=== PATIENT | female | born 1965 | race Caucasian/White ===

== ENCOUNTER 2019-10-24 11:34 | Emergency (ER) | payer OTHER ==
--- OUTSIDE RECORDS SUMMARY | 2019-10-24 11:37 | XMS REPORT ---
:1965 [facility] Address [address] [place] [address] [address]. [address] [place] [address] Care Team Providers Name Role Phone Unavailable Unavailable Unavailable Problems This patient has no known problems. Allergies, Adverse Reactions, Alerts This patient has no known allergies or adverse reactions. Medications This patient has no known medications.
[2019-10-24] MEDS ORDERED: FENTANYL CITR 100 MCG/2 ML ONE ×2 (12:52→16:13)
[2019-10-24] MEDS ORDERED: NA CHLORIDE 0.9% 500 ML ONE ×2 (12:52→16:22)
[2019-10-24 12:53] LABS: Absolute Lymphocytes (CBC) 1.1 K/uL (0.7-4.9); Basophils % 0.8 % (0-1.3); Hematocrit 41.7 % (36.0-45.0); Lymphocytes % 21.3 % (15.3-44.8); MPV 7.2 fL (7.6-11.3); RBC Red Blood Cell Count 4.45 M/uL (3.86-4.86)
[2019-10-24 13:10] LABS: Bilirubin Total 1.2 mg/dL (0.2-1.0); Protein, Total 7.4 g/dL (6.4-8.2)
[2019-10-24 13:13] LABS: Potassium 2.9 mmol/L (3.5-5.1)
[2019-10-24] MEDS ORDERED: POTASSIUM CL SA 10 MEQ TAB PO ONE (13:23)
--- NOTE | 2019-10-24 13:50 | RAD REPORT ---
EXAM DESCRIPTION: CTAbdomen Pelvis W Contrast - 10/24/2019 1:39 pm CLINICAL HISTORY: Abdominal pain. ABD PAIN COMPARISON: Small Bowel Series dated 10/19/2019 TECHNIQUE: Biphasic CT imaging of the abdomen and pelvis was performed with 100 ml non-ionic IV cont rast. All CT scans are performed using dose optimization technique as appropriate and may include automated exposure control or mA/KV adjustment according to patient size. FINDINGS: The lung bases are clear. Mild diffuse fatty liver is present. Cholelithiasis. The spleen, pancreas, adrenal glands and kidneys are within normal limits. Multiple dilated small bowel loops are present which are fluid-filled and dilated to a maximum of 6-7 cm. This is compatible with a moderate to significant mechanical small-bowel obstruction. A clear po int of transition is difficult to discern due to overlapping of bowel loops. No pneumoperitoneum. No intra-abdominal or pelvic abscess. No evidence of significant lymphadenopathy. No aggressive bone lesion. IMPRESSION: Moderately severe mechanical small bowel obstruction. No pneumoperitoneum.
--- NOTE | 2019-10-24 14:43 | EDPHYS ---
Physician Documentation [facility] Name: Gogo Horne Age: 54 yrs Sex: Female : 1965 Arrival Date: 10/24/2019 Time: 11:37 Bed 24 Private MD: Clarke Schumacher ED Physician Farrukh Estrada HPI: 10/24 13:30 This 54 yrs old Female presents to ER via Ambulatory with complaints of ps1 Abdominal Pain, Weakness. 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 She ps1 is presenting with abdominal pain localized to the mid abdomen without radiation. Course is intermittent and coming in waves. Pain is tolerable but exquisite when cramping. She is passing stool and gas. She was sent by Dr. Cedillo for concerns of dehydration and partial SBO. Patient states that she is dehydrated and has not been able to keep food down for a couple of days despite having bowel movements. She states the symptoms started after a barium test performed last week. . Historical: - Allergies: 11:49 PENICILLINS; jl7 11:49 Morphine; jl7 - Home Meds: 11:49 Dexilant oral oral [Active]; Ibrance oral oral [Active]; Faslodex intramuscular jl7 intramuscular [Active]; - PMHx: 11:49 lobular carcinoma; jl7 - PSHx: 11:49 Mastectomy; Oophorectomy; Ivy flap reconstruction; jl7 - Immunization history:: Adult Immunizations not up to date. - Coronavirus screen:: The patient has NOT traveled to [place], [place], or [place] in the past 14 days. Proceed with normal triage process as indicated. - Social history:: Smoking status: Patient denies any tobacco usage or history of. - Ebola Screening: : No symptoms or risks identified at this time. ROS: 13:30 Constitutional: Negative for fever, chills, and weight loss, Eyes: Negative for injury, ps1 pain, redness, and discharge, Cardiovascular: Negative for chest pain, palpitations, and edema, Respiratory: Negative for shortness of breath, cough, wheezing, and pleuritic chest pain, MS/Extremity: Negative for injury and deformity, Skin: Negative for injury, rash, and discoloration, Neuro: Negative for headache, weakness, numbness, tingling, and seizure. 13:30 Constitutional: Positive for fatigue. 13:30 Abdomen/GI: Positive for abdominal pain, nausea and vomiting, abdominal cramps. Exam: 13:30 Constitutional: This is a well developed, well nourished patient who is awake, alert, ps1 and in no acute distress. Head/Face: Normocephalic, atraumatic. Chest/axilla: Normal chest wall appearance and motion. Nontender with no deformity. No lesions are appreciated. Cardiovascular: Regular rate and rhythm. No gallops, murmurs, or rubs. Normal PMI, no JVD. No pulse deficits. Respiratory: Lungs have equal breath sounds bilaterally, clear to auscultation and percussion. No rales, rhonchi or wheezes noted. No increased work of breathing, no retractions or nasal flaring. Skin: Warm, dry with normal turgor. Normal color with no rashes, no lesions, and no evidence of cellulitis. MS/ Extremity: Pulses equal, no cyanosis. Neurovascular intact. Full, normal range of motion. Neuro: Awake and alert, GCS 15, oriented to person, place, time, and situation. Cranial nerves II-XII grossly intact. Sensory grossly intact. 13:30 Abdomen/GI: Inspection: abdomen appears normal, Bowel sounds: normal, Palpation: soft, nontender, no distension.. Vital Signs: 11:53 BP 122 / 90; Pulse 105; Resp 19 S; Temp 98.5(O); Pulse Ox 98% on R/A; Weight 69.4 kg jl7 (R); Height 5 ft. 8 in. (172.72 cm) (R); Pain 9/10; 13:24 BP 110 / 74; Pulse 86; Resp 18; Pulse Ox 100% on R/A; Pain 2/10; mg2 15:43 BP 116 / 66; Pulse 85; Resp 18; Pulse Ox 100% on R/A; mg2 16:58 BP 120 / 66; Pulse 78; Resp 17; Temp 98; Pulse Ox 100% on R/A; Pain 2/10; mg2 11:53 Body Mass Index 23.26 (69.40 kg, 172.72 cm) jl7 MDM: 12:27 Patient medically screened. ps1 14:33 Data reviewed: vital signs, nurses notes, lab test result(s), radiologic studies, and ps1 as a result, I will transfer patient to [facility] for further diagnostic testing and treatment. Spoke with Dr. Lemos regarding patient and surgery not comfortable with metastatic disease complicating possible procedure. GI not time motion analyst. Transfer for increased level of care. . Counseling: I had a detailed discussion with the patient and/or guardian regarding: the historical points, exam findings, and any diagnostic results supporting the discharge/admit diagnosis, the need to transfer to another facility, for higher level of care. 10/24 12:25 Order name: CBC with Diff [facility] 10/24 12:25 Order name: CMP [facility] 10/24 12:25 Order name: Lipase [facility] 10/24 12:55 Order name: CBC with Automated Diff; Complete Time: 13:13 EDMS 10/24 13:13 Order name: Comprehensive Metabolic Panel; Complete Time: 13:13 EDMS 10/24 13:14 Interpretation: Abnormal: K 2.9. ps1 10/24 13:13 Order name: Lipase; Complete Time: 13:13 EDMS 10/24 12:25 Order name: CT Abd/Pelvis - IV Contrast Only [facility] 10/24 12:25 Order name: NPO; Complete Time: 12:42 [facility] 10/24 14:12 Order name: CT; Complete Time: 14:17 EDMS Administered Medications: 12:55 Drug: fentaNYL (PF) 50 mcg Route: IVP; Site: left antecubital; mg2 15:42 Follow up: Response: No adverse reaction mg2 12:55 Drug: NS 0.9% 500 ml Route: IV; Rate: bolus; Site: left antecubital; mg2 15:42 Follow up: IV Status: Completed infusion; IV Intake: 500ml mg2 13:22 Drug: Potassium Chloride 40 mEq Route: PO; mg2 15:42 Follow up: Response: No adverse reaction mg2 16:25 Drug: Reglan 10 mg Route: IVP; Site: left antecubital; mg2 17:00 Follow up: Response: No adverse reaction mg2 16:29 Drug: fentaNYL (PF) 50 mcg Route: IVP; Site: left antecubital; mg2 17:00 Follow up: Response: No adverse reaction; Marked relief of symptoms mg2 Disposition: 10/24/19 14:43 Transfer ordered to [facility]. Diagnosis are Small bowel obstruction, Hypokalemia, Dehydration. - Reason for transfer: Higher level of care. - Accepting physician is Chucho Das (Surgery). - Condition is Stable. - Problem is new. - Symptoms are unchanged. Signatures: Dispatcher [employer] Michelle Sauceda RN RN jl7 Farrukh Estrada MD MD ps1 Ozzie Munguia RN RN mg2 Corrections: (The following items were deleted from the chart) 17:01 14:43 10/24/2019 14:43 Transfer ordered to [facility]. mg2 Diagnosis is Small bowel obstruction; Hypokalemia; Dehydration. Reason for transfer: Higher level of care. Accepting physician is Chucho Das (Surgery). Condition is Stable. Problem is new. Symptoms are unchanged. ps1
--- NOTE | 2019-10-24 14:43 | ER ---
Nurse's Notes [facility] Name: Gogo Horne Age: 54 yrs Sex: Female : 1965 Arrival Date: 10/24/2019 Time: 11:37 Bed 24 Private MD: Clarke Schumacher Diagnosis: Small bowel obstruction;Hypokalemia;Dehydration Presentation: 10/24 11:40 Presenting complaint: Patient states: "I have a small bowel blockage and I have lobular jl7 carcinoma with mets to small bowel." Pt reports abdominal pain, N/V/D, weakness started after the barium study done here on . Transition of care: patient was not received from another setting of care. Onset of symptoms was October 19, 2019. Risk Assessment: Do you want to hurt yourself or someone else? Patient reports no desire to harm self or others. Initial Sepsis Screen: Does the patient meet any 2 criteria? No. Patient's initial sepsis screen is negative. Does the patient have a suspected source of infection? No. Patient's initial sepsis screen is negative. Care prior to arrival: None. 11:40 Method Of Arrival: Ambulatory [facility] 11:40 Acuity: GUSTAVO 3 jl7 Historical: - Allergies: 11:49 PENICILLINS; jl7 11:49 Morphine; jl7 - Home Meds: 11:49 Dexilant oral oral [Active]; Ibrance oral oral [Active]; Faslodex intramuscular jl7 intramuscular [Active]; - PMHx: 11:49 lobular carcinoma; jl7 - PSHx: 11:49 Mastectomy; Oophorectomy; Ivy flap reconstruction; jl7 - Immunization history:: Adult Immunizations not up to date. - Coronavirus screen:: The patient has NOT traveled to [place], [place], or [place] in the past 14 days. Proceed with normal triage process as indicated. - Social history:: Smoking status: Patient denies any tobacco usage or history of. - Ebola Screening: : No symptoms or risks identified at this time. Screenin:56 Abuse screen: Denies threats or abuse. Denies injuries from another. Nutritional mg2 screening: No deficits noted. Tuberculosis screening: No symptoms or risk factors identified. Fall Risk Assessment: 12:15 General: Appears in no apparent distress. comfortable, Behavior is calm, cooperative. mg2 12:15 Pain: Complains of pain in abdomen Pain does not radiate. Pain currently is 5 out of 10 mg2 on a pain scale. Quality of pain is described as aching, Pain began gradually, Is intermittent. Neuro: Level of Consciousness is awake, alert, obeys commands, Oriented to person, place, time, situation. Cardiovascular: Capillary refill < 3 seconds Patient's skin is warm and dry. Respiratory: Airway is patent Respiratory effort is even, unlabored, Respiratory pattern is regular, symmetrical. GI: Bowel sounds present X 4 quads. Abd is soft. GI: Reports nausea, vomiting. : No signs and/or symptoms were reported regarding the genitourinary system. EENT: No signs and/or symptoms were reported regarding the EENT system. Derm: Skin is intact, is healthy with good turgor, Skin is pink, warm \\T\\ dry. normal. Musculoskeletal: Circulation, motion, and sensation intact. Capillary refill < 3 seconds. 15:57 Reassessment: Patient appears in no apparent distress at this time. Patient and/or mg2 family updated on plan of care and expected duration. Pain level reassessed. Patient is alert, oriented x 3, equal unlabored respirations, skin warm/dry/pink. 16:30 Reassessment: report given to Gloria Monson of [facility]. form signed by the mg2 patient. 16:58 Reassessment: report given to Millicent of [facility]. patient in good condition, IV intact. mg2 Patient states feeling better. Vital Signs: 11:53 BP 122 / 90; Pulse 105; Resp 19 S; Temp 98.5(O); Pulse Ox 98% on R/A; Weight 69.4 kg 7 (R); Height 5 ft. 8 in. (172.72 cm) (R); Pain 9/10; 13:24 BP 110 / 74; Pulse 86; Resp 18; Pulse Ox 100% on R/A; Pain 2/10; mg2 15:43 BP 116 / 66; Pulse 85; Resp 18; Pulse Ox 100% on R/A; mg2 16:58 BP 120 / 66; Pulse 78; Resp 17; Temp 98; Pulse Ox 100% on R/A; Pain 2/10; mg2 11:53 Body Mass Index 23.26 (69.40 kg, 172.72 cm) 7 ED Course: 11:37 Patient arrived in ED. mr 11:37 Clarke Schumacher MD is Private Physician. mr 11:43 Triage completed. jl7 11:49 Arm band placed on right wrist. jl7 11:51 Farrukh Estrada MD is Attending Physician. ps1 12:03 Ozzie Munguia, RN is Primary Nurse. mg2 12:55 No provider procedures requiring assistance completed. Inserted saline lock: 20 gauge mg2 in left antecubital area, using aseptic technique. Blood collected. 13:24 Patient has correct armband on for positive identification. Pulse ox on. NIBP on. Door mg2 closed. Warm blanket given. 16:59 Patient transferred, IV remains in place. mg2 Administered Medications: 12:55 Drug: fentaNYL (PF) 50 mcg Route: IVP; Site: left antecubital; mg2 15:42 Follow up: Response: No adverse reaction mg2 12:55 Drug: NS 0.9% 500 ml Route: IV; Rate: bolus; Site: left antecubital; mg2 15:42 Follow up: IV Status: Completed infusion; IV Intake: 500ml mg2 13:22 Drug: Potassium Chloride 40 mEq Route: PO; mg2 15:42 Follow up: Response: No adverse reaction mg2 16:25 Drug: Reglan 10 mg Route: IVP; Site: left antecubital; mg2 17:00 Follow up: Response: No adverse reaction mg2 16:29 Drug: fentaNYL (PF) 50 mcg Route: IVP; Site: left antecubital; mg2 17:00 Follow up: Response: No adverse reaction; Marked relief of symptoms mg2 Intake: 15:42 IV: 500ml; Total: 500ml. mg2 Outcome: 14:43 ER care complete, transfer ordered by . ps1 16:59 Transferred by ground EMS to [facility], Transfer form completed. mg2 16:59 Condition: stable 16:59 Instructed on the need for transfer, Demonstrated understanding of instructions. 17:01 Patient left the ED. mg2 Signatures: LeonTierneyalMichelle RN RN jl7 Farrukh Estrada MD MD ps1 Ozzie Munguia, EDIS RN mg2
[2019-10-24] MEDS ORDERED: NA CHLORIDE 0.9% 50 ML IV ONE (16:15)
[2019-10-24] MEDS ORDERED: METOCLOPRAMIDE 10 MG/2mL INJ ONE (16:15)
[2019-10-26 09:01] VITALS: O2SAT 100
[2019-10-26 09:04] VITALS: BP 120/66; TEMP 98
== END 2019-10-24 17:01 | disposition short-term general hospital (02) ==
LOC: ER 11:34
DX: K56.609 Unspecified intestinal obstruction, unspecified as to partial versus complete obstruction (principal); E86.0 Dehydration; E87.6 Hypokalemia; D05.00 Lobular carcinoma in situ of unspecified breast; Z88.0 Allergy status to penicillin; Z88.5 Allergy status to narcotic agent
CPT/HCPCS: 96361; 85025; 36415; 83690; 80053; 74177; 96375; 96374; 99285; Q9967; J2765; J3010 ×2; J7040 ×2

== ENCOUNTER 2019-11-15 21:20 | Emergency (ER) | payer OTHER ==
--- OUTSIDE RECORDS SUMMARY | 2019-11-15 21:22 | XMS REPORT ---
:1965 [facility] Address [address] [place] [address] [address]. [address] [place] [address] Care Team Providers Name Role Phone CLIFF CARTER Unavailable Unavailable Problems This patient has no known problems. Allergies, Adverse Reactions, Alerts This patient has no known allergies or adverse reactions. Medications This patient has no known medications. Results Test Description Test Time Test Comments Text Results Atomic Results Result Comments PHOSPHORUS 2019-10-26 05:52:00 Test Item Value Reference Range Comments PHOSPHORUS (BEAKER) (test told=601) 2.7 mg/dL 2.3-4.7 Drama Critic ID - [id number] 05:52:00 Test Item Value Reference Range Comments MAGNESIUM (BEAKER) (test sptj=771) 1.5 mg/dL 1.6-2.6 Drama Critic ID - LABASIC METABOLIC [id number] 05:52:00 Test Item Value Reference Range Comments SODIUM (BEAKER) (test 138 meq/L 136-145 wzul=420) POTASSIUM (BEAKER) (test 3.3 meq/L 3.5-5.1 wskj=674) CHLORIDE (BEAKER) (test 107 meq/L 98-107 anwr=618) CO2 (BEAKER) (test 26 meq/L 22-29 ultv=000) BLOOD UREA NITROGEN 13 mg/dL 7-21 (BEAKER) (test jalf=714) CREATININE (BEAKER) (test 0.61 mg/dL 0.57-1.25 mpxu=354) GLUCOSE RANDOM (BEAKER) 86 mg/dL 70-105 (test xgjv=608) CALCIUM (BEAKER) (test 8.2 mg/dL 8.4-10.2 sxeq=099) EGFR (BEAKER) (test 101 mL/min/1.73 sq m ESTIMATED GFR IS NOT bspw=2966) ACCURATE CREATININE CLEARANCE IN PREDICTING GLOMERULAR FILTRATION RATE. ESTIMATED GFR IS NOT APPLICABLE FOR DIALYSIS PATIENTS. Drama Critic ID - LACBC W/PLT COUNT & AUTO [id number] 05:33:00 Test Item Value Reference Range Comments WHITE BLOOD CELL COUNT (BEAKER) (test zaty=349) 3.5 K/ L 3.5-10.5 RED BLOOD CELL COUNT (BEAKER) (test lyyr=343) 3.33 M/ L 3.93-5.22 HEMOGLOBIN (BEAKER) (test kduu=508) 10.9 GM/DL 11.2-15.7 HEMATOCRIT (BEAKER) (test agli=115) 31.9 % 34.1-44.9 MEAN CORPUSCULAR VOLUME (BEAKER) (test cooy=028) 95.8 fL 79.4-94.8 MEAN CORPUSCULAR HEMOGLOBIN (BEAKER) (test 32.7 pg 25.6-32.2 rxlm=323) MEAN CORPUSCULAR HEMOGLOBIN CONC (BEAKER) (test 34.2 GM/DL 32.2-35.5 ehod=378) RED CELL DISTRIBUTION WIDTH (BEAKER) (test 13.2 % 11.7-14.4 kksm=437) PLATELET COUNT (BEAKER) (test ewwy=080) 271 K/CU MM 150-450 MEAN PLATELET VOLUME (BEAKER) (test hwbg=811) 8.7 fL 9.4-12.3 NUCLEATED RED BLOOD CELLS (BEAKER) (test 0 /100 WBC 0-0 gdol=765) NEUTROPHILS RELATIVE PERCENT (BEAKER) (test 51 % zbnv=593) LYMPHOCYTES RELATIVE PERCENT (BEAKER) (test 40 % glnc=446) MONOCYTES RELATIVE PERCENT (BEAKER) (test 6 % ogmo=739) EOSINOPHILS RELATIVE PERCENT (BEAKER) (test 2 % eoea=027) BASOPHILS RELATIVE PERCENT (BEAKER) (test 1 % ngab=969) NEUTROPHILS ABSOLUTE COUNT (BEAKER) (test 1.76 K/ L 1.56-6.13 wglg=935) LYMPHOCYTES ABSOLUTE COUNT (BEAKER) (test 1.37 K/ L 1.18-3.74 akfd=896) MONOCYTES ABSOLUTE COUNT (BEAKER) (test 0.20 K/ L 0.24-0.36 hrxh=226) EOSINOPHILS ABSOLUTE COUNT (BEAKER) (test 0.07 K/ L 0.04-0.36 pcfx=538) BASOPHILS ABSOLUTE COUNT (BEAKER) (test 0.04 K/ L 0.01-0.08 egba=238) IMMATURE GRANULOCYTES-RELATIVE PERCENT (BEAKER) 0 % 0-1 (test yhhg=5640) [id number] 11:57:00 Test Item Value Reference Range Comments POTASSIUM (BEAKER) (test kjjk=361) 3.7 meq/L 3.5-5.1 Drama Critic ID - FAUSTINO [id number] 07:17:00 Test Item Value Reference Range Comments MAGNESIUM (BEAKER) (test 1.8 mg/dL 1.6-2.6 Specimen moderately hemolyzed alax=731) Drama Critic ID - [id number] 07:17:00 Test Item Value Reference Range Comments PHOSPHORUS (BEAKER) (test 3.6 mg/dL 2.3-4.7 Specimen moderately hemolyzed naoo=547) Drama Critic ID - MIGUEL ANGELBASIC METABOLIC [id number] 07:17:00 Test Item Value Reference Range Comments SODIUM (BEAKER) (test 138 meq/L 136-145 qvct=026) POTASSIUM (BEAKER) (test 3.8 meq/L 3.5-5.1 Specimen moderately sczx=223) hemolyzed CHLORIDE (BEAKER) (test 106 meq/L 98-107 gsme=646) CO2 (BEAKER) (test 23 meq/L 22-29 keck=733) BLOOD UREA NITROGEN 17 mg/dL 7-21 (BEAKER) (test rpgu=324) CREATININE (BEAKER) (test 0.75 mg/dL 0.57-1.25 Specimen moderately sazr=120) hemolyzed GLUCOSE RANDOM (BEAKER) 115 mg/dL 70-105 (test etpn=929) CALCIUM (BEAKER) (test 8.9 mg/dL 8.4-10.2 ihwe=985) EGFR (BEAKER) (test 80 mL/min/1.73 sq m ESTIMATED GFR IS NOT drsa=0102) ACCURATE CREATININE CLEARANCE IN PREDICTING GLOMERULAR FILTRATION RATE. ESTIMATED GFR IS NOT APPLICABLE FOR DIALYSIS PATIENTS. Drama Critic ID - MIGUEL ANGELCBC W/PLT COUNT & AUTO [id number] 06:29:00 Test Item Value Reference Range Comments WHITE BLOOD CELL COUNT (BEAKER) (test vcjj=522) 4.6 K/ L 3.5-10.5 RED BLOOD CELL COUNT (BEAKER) (test isov=761) 3.97 M/ L 3.93-5.22 HEMOGLOBIN (BEAKER) (test pmew=663) 12.8 GM/DL 11.2-15.7 HEMATOCRIT (BEAKER) (test vqmi=587) 37.1 % 34.1-44.9 MEAN CORPUSCULAR VOLUME (BEAKER) (test jitk=463) 93.5 fL 79.4-94.8 MEAN CORPUSCULAR HEMOGLOBIN (BEAKER) (test 32.2 pg 25.6-32.2 ltxg=908) MEAN CORPUSCULAR HEMOGLOBIN CONC (BEAKER) (test 34.5 GM/DL 32.2-35.5 stvr=417) RED CELL DISTRIBUTION WIDTH (BEAKER) (test 13.4 % 11.7-14.4 totv=734) PLATELET COUNT (BEAKER) (test aeym=886) 360 K/CU MM 150-450 MEAN PLATELET VOLUME (BEAKER) (test acwq=620) 8.7 fL 9.4-12.3 NUCLEATED RED BLOOD CELLS (BEAKER) (test 0 /100 WBC 0-0 gyra=165) NEUTROPHILS RELATIVE PERCENT (BEAKER) (test 56 % yndk=875) LYMPHOCYTES RELATIVE PERCENT (BEAKER) (test 36 % drxg=066) MONOCYTES RELATIVE PERCENT (BEAKER) (test 6 % iwav=101) EOSINOPHILS RELATIVE PERCENT (BEAKER) (test 1 % zfte=297) BASOPHILS RELATIVE PERCENT (BEAKER) (test 1 % nwwa=800) NEUTROPHILS ABSOLUTE COUNT (BEAKER) (test 2.54 K/ L 1.56-6.13 bfpn=204) LYMPHOCYTES ABSOLUTE COUNT (BEAKER) (test 1.66 K/ L 1.18-3.74 gibi=585) MONOCYTES ABSOLUTE COUNT (BEAKER) (test 0.27 K/ L 0.24-0.36 gaee=906) EOSINOPHILS ABSOLUTE COUNT (BEAKER) (test 0.06 K/ L 0.04-0.36 kqaa=700) BASOPHILS ABSOLUTE COUNT (BEAKER) (test 0.03 K/ L 0.01-0.08 eniz=371) IMMATURE GRANULOCYTES-RELATIVE PERCENT (BEAKER) 0 % 0-1 (test jumn=1887) [id number] 22:12:00 Test Item Value Reference Range Comments MAGNESIUM (BEAKER) (test zcwb=637) 1.8 mg/dL 1.6-2.6 Drama Critic ID - BSBASIC METABOLIC [id number] 22:12:00 Test Item Value Reference Range Comments SODIUM (BEAKER) (test 139 meq/L 136-145 ioqb=979) POTASSIUM (BEAKER) (test 2.8 meq/L 3.5-5.1 itrr=282) CHLORIDE (BEAKER) (test 105 meq/L 98-107 qzcl=696) CO2 (BEAKER) (test 23 meq/L 22-29 pbsp=576) BLOOD UREA NITROGEN 16 mg/dL 7-21 (BEAKER) (test xskk=355) CREATININE (BEAKER) (test 0.78 mg/dL 0.57-1.25 naxo=469) GLUCOSE RANDOM (BEAKER) 131 mg/dL 70-105 (test msun=954) CALCIUM (BEAKER) (test 9.4 mg/dL 8.4-10.2 wacf=225) EGFR (BEAKER) (test 76 mL/min/1.73 sq m ESTIMATED GFR IS NOT qjok=1307) ACCURATE CREATININE CLEARANCE IN PREDICTING GLOMERULAR FILTRATION RATE. ESTIMATED GFR IS NOT APPLICABLE FOR DIALYSIS PATIENTS. Drama Critic ID - BSHEPATIC FUNCTION [id number] 22:12:00 Test Item Value Reference Range Comments TOTAL PROTEIN (BEAKER) (test laov=139) 6.4 gm/dL 6.0-8.3 ALBUMIN (BEAKER) (test crwo=5889) 3.9 g/dL 3.5-5.0 BILIRUBIN TOTAL (BEAKER) (test pqcp=702) 1.0 mg/dL 0.2-1.2 BILIRUBIN DIRECT (BEAKER) (test djji=085) 0.5 mg/dL 0.1-0.5 ALKALINE PHOSPHATASE (BEAKER) (test xwtu=568) 78 U/L 40-150 AST (SGOT) (BEAKER) (test agrb=481) 17 U/L 5-34 ALT (SGPT) (BEAKER) (test xltr=106) 31 U/L 6-55 Drama Critic ID - BSCBC W/PLT COUNT & AUTO [id number] 21:55:00 Test Item Value Reference Range Comments WHITE BLOOD CELL COUNT (BEAKER) (test rvcf=965) 5.6 K/ L 3.5-10.5 RED BLOOD CELL COUNT (BEAKER) (test xzot=018) 4.17 M/ L 3.93-5.22 HEMOGLOBIN (BEAKER) (test shly=999) 13.6 GM/DL 11.2-15.7 HEMATOCRIT (BEAKER) (test jssr=168) 38.4 % 34.1-44.9 MEAN CORPUSCULAR VOLUME (BEAKER) (test znow=154) 92.1 fL 79.4-94.8 MEAN CORPUSCULAR HEMOGLOBIN (BEAKER) (test 32.6 pg 25.6-32.2 upkt=350) MEAN CORPUSCULAR HEMOGLOBIN CONC (BEAKER) (test 35.4 GM/DL 32.2-35.5 ilkx=638) RED CELL DISTRIBUTION WIDTH (BEAKER) (test 13.3 % 11.7-14.4 hwsh=298) PLATELET COUNT (BEAKER) (test kpgz=894) 402 K/CU MM 150-450 MEAN PLATELET VOLUME (BEAKER) (test zijq=240) 8.8 fL 9.4-12.3 NUCLEATED RED BLOOD CELLS (BEAKER) (test 0 /100 WBC 0-0 qkse=408) NEUTROPHILS RELATIVE PERCENT (BEAKER) (test 63 % tzfb=170) LYMPHOCYTES RELATIVE PERCENT (BEAKER) (test 29 % imqa=506) MONOCYTES RELATIVE PERCENT (BEAKER) (test 6 % iugj=893) EOSINOPHILS RELATIVE PERCENT (BEAKER) (test 0 % eimi=551) BASOPHILS RELATIVE PERCENT (BEAKER) (test 1 % vhab=006) NEUTROPHILS ABSOLUTE COUNT (BEAKER) (test 3.54 K/ L 1.56-6.13 ajls=006) LYMPHOCYTES ABSOLUTE COUNT (BEAKER) (test 1.62 K/ L 1.18-3.74 rrst=944) MONOCYTES ABSOLUTE COUNT (BEAKER) (test 0.31 K/ L 0.24-0.36 zeei=103) EOSINOPHILS ABSOLUTE COUNT (BEAKER) (test 0.02 K/ L 0.04-0.36 ivij=669) BASOPHILS ABSOLUTE COUNT (BEAKER) (test 0.04 K/ L 0.01-0.08 wgve=597) IMMATURE GRANULOCYTES-RELATIVE PERCENT (BEAKER) 1 % 0-1 (test ulng=5744) POCT-GLUCOSE [id number] 21:55:00 Test Item Value Reference Range Comments POC-GLUCOSE METER (BEAKER) 119 mg/dL 70-110 : TESTED AT [facility] [address] [facility] (test zcxg=2863) [facility], [address]: Drama Critic/Sign Language Translator [id number] for Mila Abdi
--- OUTSIDE RECORDS SUMMARY | 2019-11-15 21:23 | XMS REPORT | Summary of Care ---
:1965 Author Organization [facility] Address [address] [place] [id number] Care Team Providers Name Role Phone Clarke Schumacher MD Primary Care Provider Reason for Visit Reason Comments Follow-up Diabetes Mellitus II Encounter Details Date Type Department Care Team Description 10/30/2019 Office Visit [facility] Danitza Puentes, Type 2 diabetes mellitus without complication, without long-term current use of insulin ( Primary Dx); Endocrinology- MD Subclinical hypothyroidism; [address] Dyslipidemia; Professional Office [address] [address] [address] [place] [address] Allergies Active Allergy Reactions Severity Noted Date Comments Morphine Other - See comments 04/22/2015 States, "I do not remember, but bad reaction" Penicillins Rash 04/22/2015 documented as of this encounter (statuses as of 10/30/2019) Medications Medication Sig Dispensed Refills Start End Date Status Date letrozole (FEMARA) Take 2.5 mg by 0 Active 2.5 mg tablet mouth daily. MV,CA,MIN/IRON Take by mouth. 0 Active FUM/FA/VIT K (MULTI FOR HER ORAL) Ibuprofen-Diphenhyd Take by mouth. 0 Active ramine (ADVIL PM) 200-38 mg Tab blood sugar Use as directed, 100 Strip 1 Active diagnostic daily, Dx: E11.65 5 (ACCU-CHEK REKHA PLUS TEST STRP) strip Lancets (ACCU-CHEK Use as directed, 100 Each 1 Active SOFTCLIX LANCETS) daily, Dx: E11.65 5 Misc . ubidecarenone/vitam Take by mouth. 0 Active in E mixed (COQ10 SG 100 ORAL) C,E,zinc,copper Take by mouth. 0 Active 11/qjado7n/lut (OCUVITE ADULT 50 PLUS ORAL) ondansetron 4 mg Take 1 tablet by 20 tablet 0 Active tabletIndications: mouth every 8 9 Gastroenteritis (eight) hours as needed for Nausea and Vomiting (N/V). palbociclib Take by mouth. 0 Active (IBRANCE) 125 mg Cap fulvestrant by Intramuscular 0 Active (FASLODEX) 250 mg/5 route once every mL injection month. omega-3 fatty Take 1 g by mouth 0 10/30/19 Discontinued acids-vitamin E daily. 20 (FISH OIL) 1,000 mg capsule atorvastatin 40 mg TAKE ONE TABLET 90 tablet 1 10/30/19 Discontinued tabletIndications: BY MOUTH ONCE 9 20 Dyslipidemia DAILY AT BEDTIME thyroid (ARMOUR Take 1 tablet by 90 tablet 1 10/30/19 Discontinued THYROID) 60 mg mouth every 9 20 tabletIndications: morning. Acquired hypothyroidism metformin ER 500 mg Take 4 tablets by 360 tablet 1 10/30/19 Discontinued 24 hr mouth daily with 9 20 tabletIndications: breakfast. 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 Pulse 80 10/30/2019 10:13 AM CHIEF SUPPLY CHAIN OFFICER Temperature - - Respiratory Rate 16 10/30/2019 10:13 AM CHIEF SUPPLY CHAIN OFFICER Oxygen Saturation - - Inhaled Oxygen Concentration - - Weight 71.8 kg (158 lb 6.4 oz) 10/30/2019 10:13 AM CHIEF SUPPLY CHAIN OFFICER Height 172.7 cm (5' 8") 10/30/2019 10:13 AM CHIEF SUPPLY CHAIN OFFICER Body Mass Index 24.08 10/30/2019 10:13 AM CHIEF SUPPLY CHAIN OFFICER documented in this encounter Progress Notes Danitza Puentes MD - 10/30/2019 10:00 AM CST chief complaint: Type 2 diabetes mellitus, dyslipidemia, hypothyroidism-follow up HPI: Gogo Horne is a 54 year old /White female who is here today for Diabetes Mellitus Type 2, dyslipidemia and thyroid function abnormality. She is here by herself. [facility] 12/2018. Lost about 70 lbs since [facility]. She had recurrence of breast cancer which is now metastatic to stomach.H/o breast cancer s/p mastectomy with reconstruction, radiation and chemotherapy in 2011. She is now on chemotherapy. faslodex once monthly. ibrance once 3 weeks. Not on immunotherapy. Type 2 diabetes mellitus: A1C: 7.4 to 6.6, today it is 5.5% She was metformin 2000 mg daily in 12/2018. She stooped her metformin due to bowel issues. She is noton metformin since 01/2019. Glucose monitoring: None. Refuses to check glucose and refuses to use CGM Current medications: stopped metfromin in 01/2019 Diet: has ongoing dietary issues due to small bowel mets. She is soft foods. Exercise: active DIABETIC HEALTH MAINTENANCE Last Ophthalmology visit was 11/2018. No retinopathy, + cataract. Due now Patient on VALERIE/ARB therapy - No Patient on ASA therapy - No. Patient on Statin/Fibrate therapy - stooped statin and fish oil in 01/2019 Patient instructed about daily feet exams, last sensation exam was today 2019 Patient has received Nutrition/Diet/Diabetes Education on 01/29/2016. Dyslipidemia: stopped lipitor and fish oil in 01/2019. Last LDL was 53 in 2018 off meds. Elevated TSH: TPO negative s/p radition to neck ( exposed) for breast cancer in 2011 TSH 4-5 range in 07/2015 and 10/2015. 04/2016: TSH > 6. Was started on LT4 at 25 mcg but developed hand pains and stopped with resolution of pain. Patient was then switched to Mobile 90 mg in . 03/2018: Patient stated she does not believe that was side effect of LT4 and rather was likely from letrozole as she still has numbness in hands while taking letrozole. Started on lT4 at 25 mcg again in 03/2018 however patient requested to be switched to Mobile again in05/2018. Today 10/30/2019: she stopped all her thyroid meds in 12/2018 at her [facility] with us. Last TSH was normal in 07/2019 Vitamin D deficiency: Managed by [facility] HISTORY Reviewed past medical, surgical, social, family history and no changes REVIEW OF SYSTEMS Constitutional: + weight loss- 70 Lb in a year due to metastatic cancer Eyes: denies blurry vision. Mouth/Throat: denies dysphagia and denies hoarseness. Cardiovascular: denies chest pain . Respiratory: denies shortness of breath. Gastrointestinal: has ongoing issues on food intolerance and obstructions due to mets/scar tissue Musculoskeletal: denies muscle cramps. Neuro: denies myalgias, denies neuritis and + intermittent numbness . Endocrine:+ intolerance to cold PHYSICAL EXAM BP 103/73 (BP Location: Left arm, Patient Position: Sitting, BP CUFF SIZE: Adult Large) | Pulse 80| Resp 16 | Ht 5' 8" (1.727 m) | Wt 158 lb 6.4 oz ( 71.8 kg) | BMI 24.08 kg/m General: alert, oriented times three, no apparent distress, appearing age appropriate. Skin: skin color and turgor are normal Neck: + acanthosis nigricans. negative findings: carotids without bruits Thyroid:Bosselated and no thyroid bruit Lungs: no wheezes or crackles. Heart: regular rate and rhythm. Neuro: no tremors Ext: No edema. Sensory exam of the foot is normal. Monofilament exam with sensation Right: 5/5 , Left: 5/5. Lesionsand ulcers absent. Peripheral pulses present 2+. Component Latest Ref Rng & Units 12/28/2018 06/29/2018 06/22/2018 06/22/2018 12:00 AM 1:50 PM 8:01 AM 8:01 AM CHOL 120 - 200 mg/dL 172 HDL CHOL >50 mg/dL 27 (L) HDLC RATIO <=4.5 6.4 (H) TRIG 30 - 170 mg/dL 299 (H) LDL CHOL <=160 mg/dL 85 VLDL 5 - 60 mg/dL 60 TSH 0.45 - 4.70 mIU/L 5.66 (H) POCT HBA1C 4 - 6 % 6.6 (A) 7.4 (A) Component Latest Ref Rng & Units 07/17/2019 9:06 AM NA 135 - 145 mmol/L 141 K 3.5 - 5.0 mmol/L 3.4 (L) CL 98 - 108 mmol/L 102 CO2 TOTAL 23 - 31 mmol/L 30 AGAP 2 - 16 9 BUN 7 - 23 mg/dL 8 GLUCOSE 70 - 110 mg/dL 119 (H) CREATININE 0.50 - 1.04 mg/dL 0.61 TOTAL BILI 0.1 - 1.1 mg/dL 0.6 CALCIUM 8.6 - 10.6 mg/dL 9.6 T PROTEIN 6.3 - 8.2 g/dL 6.6 ALBUMIN 3.5 - 5.0 g/dL 4.2 ALK PHOS 34 - 122 U/L 80 ALTv 5 - 35 U/L 18 AST(SGOT) 13 - 40 U/L 24 eGFR CALCULATION (non ) mL/min/1.73m2 101.8 eGFR CALCULATION () mL/min/1.73m2 123.4 Component Latest Ref Rng & Units 07/17/2019 07/17/2019 9:06 AM 9:06 AM CHOL 120 - 200 mg/dL 96 (L) HDL CHOL >50 mg/dL 30 (L) HDLC RATIO <=4.5 3.2 TRIG 30 - 170 mg/dL 66 LDL CHOL <=160 mg/dL 53 VLDL 5 - 60 mg/dL 13 TSH 0.45 - 4.70 mIU/L 3.15 FREE T4 0.78 - 2.20 ng/dL 1.10 HGB A1C 4.0 - 6.0 % NGSP 6.4 (H) POCT HBA1C (%) Date Value 10/30/2019 5.5 12/28/2018 6.6 (A) HGB A1C (% NGSP) Date Value 07/17/2019 6.4 (H) ASSESSMENT AND PLAN: ICD-10-CM ICD-9-CM 1. Type 2 diabetes mellitus without complication, without long-term current use of insulin E11.9 250.00 2. Subclinical hypothyroidism E03.9 244.8 3. Dyslipidemia E78.5 272.4 4. Fatty liver K76.0 571.8 Type 2 diabetes mellitus without complication, without long-term current use of insulin (primary encounter diagnosis) Comment: A1C is 5.5%, likely from weight loss and poor oral intake. Will hold off on meds at this time. Plan: - hold off on metformin - diet control, Therapeutic lifestyle changes - annual labs UTD, consider UMAB at next visit Dyslipidemia Comment: not on meds. Last LDL was 53. Plan: - Therapeutic lifestyle changes - consider lipid panel in 6 months at next visit Subclinical hypothyroidism Comment: Off Mobile 60 mg since 10/2018 Compliance. Will check TFTs to assess her status. Appears euthyroid clinically. Plan: - hold off on LT4 replacement - check TFTs consider medication if needed Fatty liver Comment: per patient improved after weight loss Plan: Maintain weight. Orders Placed This Encounter Procedures POCT HEMOGLOBIN A1C TEST Danitza Puentes MD Orchestra Director Endocrinology, Diabetes and Metabolism documented in this encounter Plan of Treatment Date Type Specialty Care Team Description 04/29/2020 Office Visit Endocrinology Diabetes & Danitza Puentes MD Metabolism [address] [place], [place] [id number] Health Maintenance Due Date Last Done Comments HEPATITIS C (HCV) SCREEN 1965 PNEUMOCOCCAL 0-64 YEARS COMBINED 1969 SERIES (1 of 1 - PPSV23) EYE EXAM 1973 DTaP,Tdap,and Td Vaccines (1 - 1974 Tdap) PAP SMEAR 1984 Breast Cancer Screening 2003 (MAMMOGRAM) COLONOSCOPY 2013 Zoster Recombinant Vaccine 2013 (SHINGRIX) (1 of 2) INFLUENZA VACCINE (#1) 2019 FOOT EXAM 12/29/2019 12/28/2018, 12/28/2018, 06/29/2018, Additional history exists URINE MICROALBUMIN 12/30/2019 12/29/2018, 05/06/2016, 07/24/2015 HgA1C 01/15/2020 07/17/2019, 12/28/2018, 06/29/2018, Additional history exists CREATININE (SERUM) 07/17/2020 07/17/2019, 12/29/2018, 05/06/2016, Additional history exists LDL-C 07/17/2020 07/17/2019, 12/29/2018, 06/22/2018, Additional history exists documented as of this encounter Procedures Procedure Name Priority Date/Time Associated Diagnosis Comments POCT HEMOGLOBIN A1C Routine 10/30/2019 Type 2 diabetes Results for this TEST mellitus without procedure are in the complication, without results section. long-term current use of insulin documented in this encounter Results POCT HEMOGLOBIN A1C TEST (10/30/2019) POCT HBA1C 5.5 4 - 6 % Specimen Blood - CAPILLARY documented in this encounter Visit Diagnoses Diagnosis Type 2 diabetes mellitus without complication, without long-term current use of insulin - Primary Subclinical hypothyroidism Other specified acquired hypothyroidism Dyslipidemia Other and unspecified hyperlipidemia Fatty liver Other chronic nonalcoholic liver disease documented in this encounter documented as of this encounter
--- OUTSIDE RECORDS SUMMARY | 2019-11-15 21:23 | XMS REPORT | Summary of Care ---
:1965 Author Organization [facility] Address [address] [place] [id number] Care Team Providers Name Role Phone Clarke Schumacher MD Primary Care Provider Reason for Visit Reason Comments Refill Request Encounter Details Date Type Department Care Team Description 11/08/2019 Refill [facility] Family Medicine Clarke Schumacher MD Refill Request - [address] [address] [place] [address] Allergies Active Allergy Reactions Severity Noted Date Comments Morphine Other - See comments 04/22/2015 States, "I do not remember, but bad reaction" Penicillins Rash 04/22/2015 documented as of this encounter (statuses as of 11/08/2019) Medications Medication Sig Dispensed Refills Start End Status Date Date letrozole (FEMARA) Take 2.5 mg by [...] ORAL) C,E,zinc,copper Take by mouth. 0 Active 11/oitrx7n/lut (OCUVITE ADULT 50 PLUS ORAL) palbociclib Take by mouth. 0 Active (IBRANCE) 125 mg Cap fulvestrant by Intramuscular 0 Active (FASLODEX) 250 mg/5 route once every mL injection month. ondansetron 4 mg Take 1 tablet by 20 tablet 0 Active tabletIndications: mouth every 8 0 Gastroenteritis (eight) hours as needed for Nausea and Vomiting (N/V). ondansetron 4 mg Take 1 tablet by 20 tablet 0 Discontinued tabletIndications: mouth every 8 9 020 (Reorder) Gastroenteritis (eight) hours as needed for Nausea and Vomiting (N/V). documented as of this encounter (statuses as of 11/08/2019) Active Problems Problem Noted Date Acquired hypothyroidism 08/12/2016 Dyslipidemia 08/12/2016 Metabolic syndrome X 10/30/2015 Abnormal thyroid function test 10/30/2015 Vitamin D deficiency 07/25/2015 Type 2 diabetes mellitus without complications 04/22/2015 Overview: ICD10 Diagnosis Term Medication Aid Utility documented as of this encounter (statuses as of 11/08/2019) Resolved Problems Problem Noted Date Resolved Date HLD (hyperlipidemia) 07/24/2015 08/12/2016 documented as of this encounter (statuses as of 11/08/2019) Social History Tobacco Use Types Packs/Day Years [...] of this encounter Last Filed Vital Signs Not on filedocumented in this encounter Plan of Treatment Date Type Specialty Care Team Description 04/29/2020 Office Visit Endocrinology Diabetes & Danitza Puentes MD Metabolism [address] [place] [address] Health Maintenance Due Date Last Done Comments HEPATITIS C (HCV) SCREEN 1965 PNEUMOCOCCAL 0-64 YEARS COMBINED 1969 SERIES (1 of 1 - PPSV23) EYE EXAM 1973 DTaP,Tdap,and Td Vaccines (1 - 1974 Tdap) PAP SMEAR 1984 Breast Cancer Screening 2003 (MAMMOGRAM) COLONOSCOPY 2013 Zoster Recombinant Vaccine 2013 (SHINGRIX) (1 of 2) INFLUENZA VACCINE (#1) 2019 URINE MICROALBUMIN 12/30/2019 12/29/2018, 05/06/2016, 07/24/2015 HgA1C 04/29/2020 10/30/2019, 07/17/2019, 12/28/2018, Additional history exists CREATININE (SERUM) 07/17/2020 07/17/2019, 12/29/2018, 05/06/2016, Additional history exists LDL-C 07/17/2020 07/17/2019, 12/29/2018, 06/22/2018, Additional history exists FOOT EXAM 10/30/2020 10/30/2019, 10/30/2019, 12/28/2018, Additional history exists documented as of this encounter Results Not on filedocumented in this encounter Visit Diagnoses Diagnosis Gastroenteritis Other and unspecified noninfectious gastroenteritis and colitis documented in this encounter Insurance Payer Benefit Plan / Group Subscriber ID Effective Dates Phone Address Type AETNA [employer] [facility] [id number] 2018-Present PPO documented as of this encounter
--- OUTSIDE RECORDS SUMMARY | 2019-11-15 21:23 | XMS REPORT | Summary of Care ---
:1965 Author Organization [facility] Address [address] [place] [address] Care Team Providers Name Role Phone Clarke Schumacher MD Primary Care Provider Reason for Visit Reason Comments Follow-up Diabetes Mellitus II Encounter Details Date Type Department Care Team Description 10/30/2019 Office Visit [facility] Danitza Puentes, Type 2 diabetes mellitus without complication, without long-term current use of insulin ( Primary Dx); Endocrinology- MD Subclinical hypothyroidism; [address] Dyslipidemia; Professional Office [address] [address] [address] [place] [address] Allergies Active Allergy Reactions Severity [...] ORAL) C,E,zinc,copper Take by mouth. 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 Pulse 80 10/30/2019 10:13 AM GAS CUTTING MACHINE OPERATOR Temperature - - Respiratory Rate 16 10/30/2019 10:13 AM GAS CUTTING MACHINE OPERATOR Oxygen Saturation - - Inhaled Oxygen Concentration - - Weight 71.8 kg (158 lb 6.4 oz) 10/30/2019 10:13 AM GAS CUTTING MACHINE OPERATOR Height 172.7 cm (5' 8") 10/30/2019 10:13 AM GAS CUTTING MACHINE OPERATOR Body Mass Index 24.08 10/30/2019 10:13 AM GAS CUTTING MACHINE OPERATOR documented in this encounter Progress Notes Danitza Puentes MD - 10/30/2019 10:00 AM CST chief complaint: Type 2 diabetes mellitus, dyslipidemia, hypothyroidism-follow up HPI: Gogo Horne is a 54 year old /White female who is here today for Diabetes Mellitus Type 2, dyslipidemia and thyroid function abnormality. She is here by herself. [facility] 12/2018. Lost about 70 lbs since [facility]. She had recurrence of breast cancer which [...] of pain. Patient was then switched to [place] 90 mg in . 03/2018: Patient stated she does not believe that was side effect of LT4 and rather was likely from letrozole as she still has numbness in hands while taking letrozole. Started on lT4 at 25 mcg again in 03/2018 however patient requested to be switched to [place] again in05/2018. Today 10/30/2019: she stopped all her thyroid meds in 12/2018 at her [facility] with us. Last TSH was normal in 07/2019 Vitamin D deficiency: Managed by [facility] HISTORY Reviewed past medical, surgical, [...] at next visit Subclinical hypothyroidism Comment: Off Winslow 60 mg since 10/2018 Compliance. Will check TFTs to assess her status. Appears euthyroid clinically. Plan: - hold off on LT4 replacement - check TFTs consider medication if needed Fatty liver Comment: per patient improved after weight loss Plan: Maintain weight. Orders Placed This Encounter Procedures POCT HEMOGLOBIN A1C TEST Danitza Puentes MD Mountain [employer]ike Guide Endocrinology, Diabetes and Metabolism documented in this encounter Plan of Treatment Date Type Specialty Care Team Description 04/29/2020 Office Visit Endocrinology Diabetes & Danitza Puentes MD Metabolism [address] [place], [place] [address] Health Maintenance Due Date Last Done Comments [...]
--- OUTSIDE RECORDS SUMMARY | 2019-11-15 21:23 | XMS REPORT | Summary of Care ---
:1965 Author Organization [facility] [place] [address] Care Team Providers Name Role Phone Unavailable Primary Care Provider Unavailable Reason for Visit Reason Comments Breast Cancer Encounter Details Date Type Department Care Team Description 10/27/2019 [facility] Mike Call MD [facility] [address] 7th Floor, [address] [place] [address] 7th Floor, [address] [phone] [place] [phone] Allergies Active Allergy Reactions Severity Noted Date Comments Adhesive Tape 01/17/2013 Blisters and Rash. Opioid Analgesics 01/17/2013 Severe vomiting. Penicillins 12/09/2010 documented as of this encounter (statuses as of 10/31/2019) Medications Medication Sig Dispensed Refills Start Date End Date Status atorvastatin (LIPITOR) 10 Take 1 Tab by 30 Tab 6 09/11/2014 Active MG tabletIndications: mouth daily. Mixed hyperlipidemia metoclopramide (REGLAN) Take 1 Tab by 60 Tab 1 06/16/2019 Active 10 MG tablet mouth four times daily. Additional Information Patient taking differently: 10 mg ORAL PRN, Reason: Patient's preference, Reported on 10/27/2019 2:10 PM IBRANCE 125 MG CAPSIndications: TAKE ONE CAPSULE BY MOUTH 21 Cap 5 2019 Active Metastatic breast cancer DAILY WITH FOOD FOR 21 (HCCode), Metastatic DAYS OF A 28 DAY CYCLE. adenocarcinoma to stomach SWALLOW WHOLE. DO NOT (HCCode) TAKE IF CAPSULES ARE BROKEN OR CRACKED. AVOID GRAPEFRUIT PRODUCTS DEXILANT 60 MG CPDR TAKE 1 CAPSULE BY MOUTH 0 10/12/2019 Active ONCE DAILY ondansetron (ZOFRAN) 4 MG Take 4 mg by mouth. 0 02/01/2019 Active tablet documented as of this encounter (statuses as of 10/31/2019) Active Problems Problem Noted Date Metastatic breast cancer (HCCode) 03/09/2019 Mixed hyperlipidemia 09/11/2014 Diabetes type 2, uncontrolled (HCCode) 06/07/2014 Hypothyroidism 06/07/2014 Ovarian metastasis (HCCode) 04/20/2012 Cancer Staging: Clinical: Stage IV (M1, Free text: M1 (ovarian mets)) - Signed by Riri Crar MD, PhD on 04/20/2012 Pathologic: Stage IV (M1, Free text: T3 (multicentric, bilateral)N3M1 (ovarian mets)) - Signed by iRri Carr MD, PhD on 04/20/2012 [facility] 05/[facility]/2011 Overview: [facility] Tumor Board discussed this pt on 12/17/2010. Please see progress notes (Dr. Carr). [facility] Tumor Board discussed this pt on 06/03/2011. Please see progress notes (Dr. Carr). S/p bilateral mastectomies with R axillary node dissection (33/33 nodes positive, including level 3) and L sentinel node biopsy (micromets). S/p adjuvant chemo with TC x 6 completed 09/2011. documented as of this encounter (statuses as of 10/31/2019) Resolved Problems Problem Noted Date Resolved Date Neutropenia, unspecified (HCCode) 06/16/2011 03/01/2018 documented as of this encounter (statuses as of 10/31/2019) Social History Tobacco Use Types Packs/Day Years Used Date Never Smoker Smokeless Tobacco: Never Used Alcohol Use Drinks/Week oz/Week Comments No 1-2 Standard drinks or equivalent 1.0 - 2.0 special occassions. Sex Assigned at Date Recorded Not on file Job Start Date Occupation Industry Not on file Not on file Not on file Travel History Travel Start Travel End No recent travel history available. documented as of this encounter Last Filed Vital Signs Vital Sign Reading Time Taken Comments Blood Pressure 111/75 10/27/2019 1:50 PM [employer] Pulse 84 10/27/2019 1:50 PM [employer] Temperature 36.8 C (98.2 F) 10/27/2019 1:50 PM [employer] Respiratory Rate - - Oxygen Saturation - - Inhaled Oxygen Concentration - - Weight - - Height 172.7 cm (5' 8") 10/27/2019 1:50 PM [employer] Body Mass Index - - documented in this encounter Progress Notes Oneyda Mccullough MD - 10/27/2019 1:50 PM CST HPI: Feels well but she feels overwhelmed with having to come for such frequent visits on palbociclib. She is worried that that the treatment is not working well and also the inconvenient. * 12/01/10 MMG: Bilateral suspcious masses, both showed ILC, gr 1-2, ER 8/8, DE 7/8, HER2-, MIB 10%. Left breast biopsy was too small to perform biomarkers. Right axillary LN + for cancer. * CT: Innumerable bony mets, but bone scan was negative. Tumor board recommended neoadjuvant Tamoxifen. * 12/24/10 Started neoadjuvant Tamoxifen. * 04/24/11 bilateral mastectomies: Extensive bilateral ILC (2.1 cm in left, 7.5 cm in right breast),33/[address] 1 Left axillary SNB with micromets. * 06/03/11 Tumor Board recommendation was for adjuvant TC chemotherapy. * 06/19/11-10/02/11 TC x 6 cycles. * 12/2011 Pt completed adjuvant XRT with Dr. Willy Valdivia in [place], [place]. * 01/26/12 Started adjuvant Tamoxifen * 02/03/12 Tumor Board: Recommendation was for adjuvant endocrine therapy with bilateral oophorectomy and Tamoxifen. * 03/04/[address] ([facility]): diffuse sclerotic foci noted within virtually all imaged bones andhas the appearance of metastatic disease. * 03/10/12 BSO ([facility]): metastatic adenocarcinoma, c/w history of lobular carcinoma of breast. Tumor involves bilateral ovaries and fallopian tubes. ER 8/ 8, DE 8/8, HER2=0 (negative). * 04/2012: Started letrozole * 03/07/19 CT Abd/plevis: 1. Multiple dilated small bowel loops with small bowel fecal sign and collapse of the proximal and distal small bowel. Findings are compatible with high-grade small bowel obstruction. 2. Diffuse thickening of the gastric wall consistent with metastatic Disease. 3. Status post bilateral mastectomy, right axillary lymph node dissection and TRAM flap reconstruction. * 03/07/19 Bone scan: negative for bone mets. * 03/14/19: Faslodex and Palbociclib * 06/09/19 CT C/A/P: 1. 2 persistently dilated loops of distal small bowel/ileum are again noted, improved since the prior exam. There are focal areas of narrowing with increased mucosal enhancement these bowel loops from normal caliber loops, and these may represent metastases to bowel. Inflammatory bowel disease is a less likely consideration. The rest of the bowel shows normal caliber. 2. No other evidence of metastatic disease in the chest, abdomen and Pelvis. 09/01/19 CT C/A/P: 1. Persistent mild to moderately dilated loops of small bowel with unchanged focal segmental wall thickening, mucosal enhancement, and luminal narrowing. As before, differential considerations include an infectious/ inflammatory process and enteric metastases. 2. Otherwise, no specific evidence of recurrent malignancy or metastatic disease within the chest, abdomen , and pelvis. Interim history: Was recently admitted to [facility] for SBO - was told while admitted that there is a single narrow small bowel area that can be bypassed. She is following with GI surgeon and is wondering whether such a procedure is ok by her oncologist. Past Medical History: Diagnosis Date Metastatic breast cancer (HCCode) 03/09/2019 Neutropenia, unspecified (HCCode) 06/16/2011 Social History Socioeconomic History Marital status: Spouse name: Not on file Number of children: Not on file Years of education: Not on file Highest education level: Not on file Occupational History Not on file Social Needs Financial resource strain: Not on file Food insecurity: Worry: Not on file Inability: Not on file Transportation needs: Medical: Not on file Non-medical: Not on file Tobacco Use Smoking status: Never Smoker Smokeless tobacco: Never Used Substance and Sexual Activity Alcohol use: No Alcohol/week: 1.0 - 2.0 standard drinks Types: 1 - 2 drink(s) per week Comment: special occassions. Drug use: No Sexual activity: Not on file Lifestyle Physical activity: Days per week: Not on file Minutes per session: Not on file Stress: Not on file Relationships Social connections: Talks on phone: Not on file Gets together: Not on file Attends denominational service: Not on file Active member of club or organization: Not on file Attends meetings of clubs or organizations: Not on file Relationship status: Not on file Intimate partner violence: Fear of current or ex partner: Not on file Emotionally abused: Not on file Physically abused: Not on file Forced sexual activity: Not on file Other Topics Concerns: Not on file Social History Narrative Not on file No family history on file. Outpatient Medications Prior to Visit Medication Sig Dispense Refill atorvastatin Take 1 Tab by mouth daily. 30 Tab 6 DEXILANT TAKE 1 CAPSULE BY MOUTH ONCE DAILY IBRANCE TAKE ONE CAPSULE BY MOUTH DAILY WITH FOOD FOR 21 DAYS OF A 28 DAY CYCLE. SWALLOW WHOLE. DO NOT TAKE IF CAPSULES ARE BROKEN OR CRACKED. AVOID GRAPEFRUIT PRODUCTS 21 Cap 5 metoclopramide Take 1 Tab by mouth four times daily. (Patient taking differently: Take 10 mg by mouth as needed.) 60 Tab 1 ondansetron Take 4 mg by mouth. No facility-administered medications prior to visit. PHYSICAL EXAM: Vital Signs Height: 5' 8" (172.7 cm) Temp: 98.2 F (36.8 C) Temp Source: Oral Pulse: 84 BP: 111/75 Patient Position: Sitting BP Location: left arm Oxygen Therapy O2 Sat: 97 % O2 Flow Rate: Room Air Height and Weight Predicted Body Weight: 140.87 Weight gain of 14# since Aug 2017 appointment. Pain Assessment Pain Scale: 0 Breasts: s/p bilateral mastectomy with reconstruction, reconstructed breasts appear normal, there genaro firm mass in the upper medial area of the L breast, no skin or nipple changes or axillary nodes. ECO Well appearing, in no distress MMs moist RRR, no m/r/g Clear to auscultation bilaterally Abdomen benign without organomegally or masses, bowel sounds normal, no shifting dullness Ext: no c/c/e Skin: no rashes or lesions Neuro: normal gait, strength and sensation symmetric Psych: mood and affect appropriate Labs from today, Na 128 WBC within normal today Assessment and plan: Pt is a 53 yo woman with metastatic ILC with bowel mets and hx of SBO Continue with faslodex and ibrance I am in agreement with the procedure since patient has been reassured by the surgical team that the there is a single obstructive focus in the small bowel that may be due to presence of scars / adhesions. Per the stomach biopsy in 2018, there is metastatic breast cancer in the stomach lining. If shedoes proceed with the procedure, she needs to stop ibrance at least 7 days before the procedure. RTC in 5 weeks. Spend >45 minutes face to face with patient, where >50% was in counseling and discussing treatment options - the fact that the imaging shows stable to improved is reassuring. Oneyda Leal MD [facility] documented in this encounter Plan of Treatment Date Type Specialty Care Team Description 11/20/2019 Appointment General Surgery Chucho Das MD [address] [place] [address] 12/01/2019 Appointment Infusion Center 4, [facility] Chair [address], [address] [place] [address] Health Maintenance Due Date Last Done Comments COLON CANCER SCREENIN1963 COLONOSCOPY TETANUS SHOT (ADULT) 1978 ANNUAL DIABETIC FOOT EXAM 1981 ANNUAL DIABETIC RETINOPATHY 1981 SCREENING BMI FOLLOW UP PLAN 1981 HEPATITIS C SCREENING 1981 HIV SCREENING 1981 CERVICAL CANCER SCREENING 3 YEAR 1984 FOLLOW UP MAMMOGRAM ANNUAL 03/09/2012 03/09/2011, 12/11/2010, 12/09/2010, Additional history exists FLU VACCINE > 6 MONTHS 04/13/2019 documented as of this encounter Results Not on filedocumented in this encounter Visit Diagnoses Diagnosis Metastatic breast cancer (HCCode) - Primary documented in this encounter Insurance Payer Benefit Plan / Subscriber ID Effective Dates Phone Address Type Group [employer] OPEN ACCESS xxxxxxxxxx 2018-Present [id number] POS HMO/POS/EPO/PPO - [place], [place] [employer] [id number] documented as of this encounter
--- OUTSIDE RECORDS SUMMARY | 2019-11-15 21:23 | XMS REPORT | Summary of Care ---
:1965 Author Organization [facility] - Health Address [address] [place], [place] [id number] Care Team Providers Name Role Phone Clarke Schumacher MD Primary Care Provider Encounter Details Date Type Department Care Team Description 10/31/2019 Orders Only [facility] Doctor Unassigned, No [address] [facility] Name [place] [phone] Allergies Active Allergy Reactions Severity Noted Date Comments Morphine Other - See comments 04/22/2015 States, "I do not remember, but bad reaction" Penicillins Rash 04/22/2015 documented as of this encounter (statuses as of 10/31/2019) Medications Medication Sig Dispensed Refills Start Date End Date Status letrozole (FEMARA) Take 2.5 mg by 0 Active 2.5 mg tablet mouth daily. MV,CA,MIN/IRON Take by mouth. 0 Active FUM/FA/VIT K (MULTI FOR HER ORAL) Ibuprofen-Diphenhydra Take by mouth. 0 Active mine (ADVIL PM) 200-38 mg Tab blood sugar Use as directed, 100 Strip 1 07/24/2015 Active diagnostic (ACCU-CHEK daily, Dx: E11.65 REKHA PLUS TEST STRP) strip Lancets (ACCU-CHEK Use as directed, 100 Each 1 07/24/2015 Active SOFTCLIX LANCETS) daily, Dx: E11.65 . Misc ubidecarenone/vitamin Take by mouth. 0 Active E mixed (COQ10 SG 100 ORAL) C,E,zinc,copper Take by mouth. 0 Active 11/beqsv5t/lut (OCUVITE ADULT 50 PLUS ORAL) ondansetron 4 mg Take 1 tablet by 20 tablet 0 02/01/2019 Active tabletIndications: mouth every 8 Gastroenteritis (eight) hours as needed for Nausea and Vomiting (N/V). palbociclib (IBRANCE) Take by mouth. 0 Active 125 mg Cap fulvestrant by Intramuscular 0 Active (FASLODEX) 250 mg/5 route once every mL injection month. documented as of this encounter (statuses as of 10/31/2019) Active Problems Problem Noted Date Acquired hypothyroidism 08/12/2016 Dyslipidemia 08/12/2016 Metabolic syndrome X 10/30/2015 Abnormal thyroid function test 10/30/2015 Vitamin D deficiency 07/25/2015 Type 2 diabetes mellitus without complications 04/22/2015 Overview: ICD10 Diagnosis Term Full Stack Web Developer Utility documented as of this encounter (statuses [...] Diabetes & Danitza Puentes MD Metabolism [address] [place] [address] [phone] Health Maintenance Due Date Last Done Comments [...] Procedure Name Priority Date/Time Associated Diagnosis Comments EXTERNAL PROVIDER Routine 10/31/2019 12:01 AM [employer] RECORDS documented in this encounter Results Not on filedocumented in this encounter Insurance Payer Benefit Plan / Group Subscriber ID Effective Dates Phone Address Type AET[employer] [facility] [id number] 2018-Present PPO documented as of this encounter
[2019-11-15] MEDS ORDERED: ONDANSETRON 4 MG/2 ML VIAL ONE (22:00)
[2019-11-15] MEDS ORDERED: NA CHLORIDE 0.9% 1,000 ML ONE (22:01)
[2019-11-15] MEDS ORDERED: FAMOTIDINE 20 MG/2 ML VIAL IV ONE (22:01)
[2019-11-15 22:07] LABS: Absolute Lymphocytes (CBC) 1.3 K/uL (0.7-4.9); Basophils % 0.7 % (0-1.3); Hematocrit 40.5 % (36.0-45.0); Lymphocytes % 20.6 % (15.3-44.8); MPV 7.6 fL (7.6-11.3)
[2019-11-15] MEDS ORDERED: FENTANYL CITR 100 MCG/2 ML ONE (22:21)
[2019-11-15 22:26] LABS: ALT/SGPT 194 U/L (12-78); AST/SGOT 154 U/L (15-37); Albumin 3.3 g/dL (3.4-5.0); Alkaline Phosphatase 80 U/L (45-117); BUN Blood Urea Nitrogen 24 mg/dL (7-18); Bicarbonate 25 mmol/L (21-32); Bilirubin Direct 0.4 mg/dL (0-0.2); Bilirubin Total 1.2 mg/dL (0.2-1.0); Glucose Level 132 mg/dL (74-106); Lipase 143 U/L (73-393); Protein, Total 6.3 g/dL (6.4-8.2); Sodium Level 136 mmol/L (136-145)
[2019-11-15 22:27] LABS: Potassium 2.8 mmol/L (3.5-5.1)
[2019-11-15] MEDS ORDERED: NS KCL 20MEQ 1,000 ML IV ONE (22:49)
[2019-11-16] MEDS ORDERED: CIPROFLOXACIN 400mg IV 400 MG/200 ML BAG IV ONE (01:00)
[2019-11-16] MEDS ORDERED: METRONIDAZOLE 500mg IVPB 500 MG/100 ML BAG IV ONE (01:01)
--- NOTE | 2019-11-16 01:03 | ER ---
Nurse's Notes [facility] Name: Gogo Horne Age: 54 yrs Sex: Female : 1965 Arrival Date: 11/15/2019 Time: 21:22 Bed 7 Private MD: Diagnosis: Cholecystitis;Hypokalemia;Small Bowel Obstruction Presentation: 11/14 21:25 Chief complaint: Patient states: she was recently diagnosed with a SBO and was aa1 scheduled to have outpatient surgery this upcoming Wednesday in [place] but today she began having upper int abd pain and vomiting since earlier this afternoon. Coronavirus screen: The patient has NOT traveled to a country currently being monitored by the [facility] within the last 14 days. Proceed with normal triage procedures. Ebola Screen: Patient denies exposure to infectious person. Patient denies travel to an Ebola-affected area in the 21 days before illness onset. Initial Sepsis Screen: Does the patient meet any 2 criteria? HR > 90 bpm. Does the patient have a suspected source of infection? Yes: Acute abdominal pain. Risk Assessment: Do you want to hurt yourself or someone else?. 21:25 Method Of Arrival: Ambulatory aa1 21:25 Acuity: GUSTAVO 2 aa1 21:25 Onset of symptoms was November 15, 2019 at 17:30. Care prior to arrival: None. Activity aa1 prior to arrival: None. Mechanism of Injury: No Mechanism of Injury. Transition of care: patient was not received from another setting of care. Triage Assessment: 21:25 General: Appears in no apparent distress. uncomfortable, Behavior is calm, cooperative, aa1 appropriate for age. Historical: - Allergies: 21:47 Morphine; aa1 21:47 PENICILLINS; aa1 - Home Meds: 21:47 Dexilant Oral [Active]; Faslodex intramuscular [Active]; Ibrance Oral [Active]; aa1 - PMHx: 21:47 lobular carcinoma; aa1 - PSHx: 21:47 Mastectomy; Oophorectomy; Ivy flap reconstruction; aa1 - Immunization history:: Flu vaccine is not up to date. - Social history:: Smoking status: Patient denies any tobacco usage or history of. Screenin:32 Abuse screen: Denies threats or abuse. Denies injuries from another. Nutritional mg2 screening: No deficits noted. Tuberculosis screening: No symptoms or risk factors identified. Fall Risk IV access (20 points). Assessment: 22:15 General: Appears in no apparent distress. comfortable. General: Behavior is calm, mg2 cooperative. Pain: Complains of pain in abdomen. Neuro: Level of Consciousness is awake, alert, obeys commands, Oriented to person, place, time, situation. Cardiovascular: Capillary refill < 3 seconds Patient's skin is warm and dry. Respiratory: Airway is patent Respiratory effort is even, unlabored, Respiratory pattern is regular, symmetrical. GI: Reports lower abdominal pain, upper abdominal pain, vomiting, since 5 pm tonight. GI: Reports history of small bowel obstruction. : No signs and/or symptoms were reported regarding the genitourinary system. EENT: No signs and/or symptoms were reported regarding the EENT system. Derm: Skin is intact, is healthy with good turgor, Skin is pink, warm \T\ dry. normal. Musculoskeletal: Circulation, motion, and sensation intact. Capillary refill < 3 seconds. 22:52 Reassessment: Patient appears in no apparent distress at this time. Patient and/or mg2 family updated on plan of care and expected duration. Pain level reassessed. Patient is alert, oriented x 3, equal unlabored respirations, skin warm/dry/pink. Patient states feeling better. Patient states symptoms have improved. 03 00:28 Reassessment: Patient appears in no apparent distress at this time. Patient and/or mg2 family updated on plan of care and expected duration. Pain level reassessed. Patient is alert, oriented x 3, equal unlabored respirations, skin warm/dry/pink. 00:36 Reassessment: patient refused NGT insertion,. provider informed. mg2 02:20 Reassessment: report given to EMS. patient in good condition.. pain medicine given mg2 prior to transfer, iv intact. aox4. Vital Signs: 11/14 21:25 BP 154 / 98; Pulse 107; Resp 18; Temp 97.7; Pulse Ox 99% on R/A; Weight 66.22 kg; aa1 Height 5 ft. 8 in. (172.72 cm); Pain 0/10; 22:33 BP 131 / 80; Pulse 84; Resp 18; Pulse Ox 100% on R/A; mg2 23:21 BP 117 / 88; Pulse 89; Resp 17; Pulse Ox 99% on R/A; rv 03/05 00:28 BP 127 / 76; Pulse 82; Resp 18; Pulse Ox 98% on R/A; mg2 01:26 BP 115 / 77; Pulse 81; Resp 18; Temp 97.8; Pulse Ox 100% on R/A; mg2 11/14 21:25 Body Mass Index 22.20 (66.22 kg, 172.72 cm) aa1 ED Course: 11/14 21:22 Patient arrived in ED. cl3 21:25 Patient placed in an exam room, on a stretcher. aa1 21:35 Diony Kevin PA is PHCP. cp 21:35 Avery Cosby MD is Attending Physician. cp 21:41 Triage completed. aa1 21:41 Ozzie Munguia, EDIS is Primary Nurse. mg2 21:53 No provider procedures requiring assistance completed. Inserted saline lock: 20 gauge mg2 in left forearm, using aseptic technique. Blood collected. 22:33 Patient has correct armband on for positive identification. Door closed. Warm blanket mg2 given. 23:05 US Abdomen Limited In Process Unspecified. EDMS 23:51 CT Abd/Pelvis - IV Contrast Only In Process Unspecified. EDMS 11/15 02:20 Patient transferred, IV remains in place. mg2 Administered Medications: 11/14 22:02 Drug: Pepcid 20 mg Route: IVP; Site: left forearm; mg2 22:53 Follow up: Response: No adverse reaction mg2 22:03 Drug: Zofran (Ondansetron) 4 mg Route: IVP; Site: left forearm; mg2 22:53 Follow up: Response: No adverse reaction mg2 22:04 Drug: NS 0.9% 1000 ml Route: IV; Rate: 1000 ml/hr; Site: left forearm; mg2 11/15 01:26 Follow up: Response: No adverse reaction; IV Status: Completed infusion; IV Intake: mg2 1000ml 03 22:21 Drug: fentaNYL (PF) 25 mcg Route: IVP; Site: left forearm; mg2 22:53 Follow up: Response: No adverse reaction; Marked relief of symptoms; Pain is decreased mg2 22:51 Drug: Potassium Chloride 20 mEq {Note: given for 4 hours.} Route: IV; Rate: calculated mg2 rate; Site: left forearm; 11/15 02:20 Follow up: Response: No adverse reaction; IV Status: Infusion continued upon transfer mg2 01:22 Drug: metroNIDAZOLE 500 mg Volume: 100 ml; Route: IVPB; Infused Over: 30 mins; Site: mg2 left forearm; 02:16 Follow up: Response: No adverse reaction; IV Status: Completed infusion mg2 02:16 Drug: Ciprofloxacin 400 mg Volume: 200 ml; Route: IVPB; Infused Over: 60 mins; Site: mg2 left forearm; 02:16 Follow up: Response: No adverse reaction; IV Status: Infusion continued upon transfer mg2 02:19 Drug: fentaNYL (PF) 25 mcg Route: IVP; Site: left forearm; mg2 02:20 Follow up: Response: No adverse reaction mg2 Intake: 01:26 IV: 1000ml; Total: 1000ml. mg2 Outcome: 01:01 ER care complete, transfer ordered by . cp 02:19 Transferred by [facility] to [facility], Transfer form completed. mg2 02:19 Condition: stable 02:19 Instructed on the need for transfer, Demonstrated understanding of instructions. 02:20 Patient left the ED. mg2 Signatures: Dispatcher [employer] EDMS Rosa Coyne RN RN aa1 Diony Kevin PA PA cp Ozzie Munguia, RN RN mg2 Kevin Berger RN RN Keila Landis cl3
--- NOTE | 2019-11-16 01:03 | EDPHYS ---
Physician Documentation [facility] Name: Gogo Horne Age: 54 yrs Sex: Female : 1965 Arrival Date: 11/15/2019 Time: 21:22 Bed 7 Private MD: ED Physician Avery Cosby HPI: 11/14 21:55 This 54 yrs old Female presents to ER via Ambulatory with complaints of cp General Weakness. 21:55 The patient presents with abdominal pain in the upper abdomen. Onset: The cp symptoms/episode began/occurred today. Associated signs and symptoms: Pertinent positives: nausea and vomiting, Pertinent negatives: chest pain, constipation, diarrhea, vomiting blood. 21:55 The patient has experienced a previous episode, last month, diagnosed with small bowel cp obstruction and transferred to [facility] under the care of DR Chucho Das. Patient reports she is scheduled for surgery this Wednesday and reports history of lobular cancer. Historical: - Allergies: 21:47 Morphine; aa1 21:47 PENICILLINS; aa1 - Home Meds: 21:47 Dexilant Oral [Active]; Faslodex intramuscular [Active]; Ibrance Oral [Active]; aa1 - PMHx: 21:47 lobular carcinoma; aa1 - PSHx: 21:47 Mastectomy; Oophorectomy; Ivy flap reconstruction; aa1 - Immunization history:: Flu vaccine is not up to date. - Social history:: Smoking status: Patient denies any tobacco usage or history of. ROS: 22:00 Constitutional: Negative for body aches, chills, fever, poor PO intake. cp 22:00 Eyes: Negative for injury, pain, redness, and discharge. cp 22:00 Cardiovascular: Negative for chest pain, edema, palpitations. cp 22:00 ENT: Negative for drainage from ear(s), ear pain, sore throat, difficulty swallowing, cp difficulty handling secretions. 22:00 Respiratory: Negative for cough, shortness of breath, wheezing. 22:00 Abdomen/GI: Positive for abdominal pain, nausea and vomiting, Negative for diarrhea, constipation, hematemesis. 22:00 Back: Negative for radiated pain. 22:00 Skin: Negative for rash. 22:00 Neuro: Negative for altered mental status, headache. 22:00 All other systems are negative. Exam: 22:10 Constitutional: The patient appears in no acute distress, alert, awake, cp non-diaphoretic, non-toxic, well developed, well nourished, uncomfortable. 22:10 Head/Face: Normocephalic, atraumatic. cp 22:10 Eyes: Periorbital structures: appear normal, Pupils: equal, round, and reactive to light and accomodation, Extraocular movements: intact throughout, Conjunctiva: normal, no exudate, no injection, Sclera: no appreciated abnormality, Lids and lashes: appear normal, bilaterally. 22:10 ENT: External ear(s): are unremarkable, Nose: is normal, Mouth: Lips: moist, Oral mucosa: pink and intact, moist, Posterior pharynx: is normal, airway is patent, no erythema, no exudate. 22:10 Neck: ROM/movement: is normal, is supple, without pain, no range of motions limitations, no nuchal rigidity. 22:10 Chest/axilla: Inspection: normal, Palpation: is normal, no crepitus, no tenderness. 22:10 Cardiovascular: Rate: tachycardic, Rhythm: regular, JVD: is not appreciated. 22:10 Respiratory: the patient does not display signs of respiratory distress, Respirations: normal, no use of accessory muscles, no retractions, labored breathing, is not present, Breath sounds: are clear throughout, no decreased breath sounds, no wheezing. 22:10 Abdomen/GI: Inspection: distension, that is moderate, in the abdomen diffusely, Bowel sounds: active, all quadrants, Palpation: soft, in all quadrants, moderate abdominal tenderness, in the right upper quadrant and left upper quadrant, rebound tenderness, is not appreciated, involuntary guarding, is not appreciated. 22:10 Back: pain, is absent, ROM is normal. 22:10 Skin: no rash present. 22:10 Neuro: Orientation: to person, place \T\ time. Mentation: is normal. 11/15 01:22 ECG was reviewed by the Attending Physician. cp Vital Signs: 11/14 21:25 BP 154 / 98; Pulse 107; Resp 18; Temp 97.7; Pulse Ox 99% on R/A; Weight 66.22 kg; aa1 Height 5 ft. 8 in. (172.72 cm); Pain 0/10; 22:33 BP 131 / 80; Pulse 84; Resp 18; Pulse Ox 100% on R/A; mg2 23:21 BP 117 / 88; Pulse 89; Resp 17; Pulse Ox 99% on R/A; rv 03/ 00:28 BP 127 / 76; Pulse 82; Resp 18; Pulse Ox 98% on R/A; mg2 01:26 BP 115 / 77; Pulse 81; Resp 18; Temp 97.8; Pulse Ox 100% on R/A; mg2 11/14 21:25 Body Mass Index 22.20 (66.22 kg, 172.72 cm) aa1 MDM: 11/14 21:45 Patient medically screened. cp 11/15 00:58 Data reviewed: vital signs, nurses notes, lab test result(s), radiologic studies, CT cp scan, plain films. 11/14 21:53 Order name: Basic Metabolic Panel; Complete Time: 22:44 cp 11/14 22:44 Interpretation: Normal except: K 2.8; GLUC 132; BUN 24. cp 11/14 21:53 Order name: CBC with Diff; Complete Time: 22:44 cp 11/15 00:11 Interpretation: Within normal limits. cp 11/14 21:53 Order name: Creatinine for Radiology; Complete Time: 22:44 cp 11/14 21:53 Order name: Hepatic Function; Complete Time: 22:44 cp 11/14 22:44 Interpretation: Normal except: AST 154; ALT 194; BILIT 1.2; BILID 0.4; TP 6.3; ALB 3.3. cp 11/14 21:53 Order name: Lipase; Complete Time: 22:44 cp 11/14 22:23 Order name: CT Abd/Pelvis - IV Contrast Only cp 11/14 22:46 Order name: US Abdomen Limited cp 11/14 21:53 Order name: IV Saline Lock; Complete Time: 21:59 cp 11/14 21:53 Order name: Labs collected and sent; Complete Time: 21:59 cp 11/15 00:51 Order name: NPO; Complete Time: 00:52 cp 11/15 00:58 Order name: EKG; Complete Time: 01:00 cp 11/15 00:58 Order name: EKG - Nurse/Tech; Complete Time: 01:10 cp EC:22 Rate is 91 beats/min. Rhythm is regular. FL interval is normal. QRS interval is normal. cp QT interval is normal. Interpreted by me. Reviewed by me. Administered Medications: 11/14 22:02 Drug: Pepcid 20 mg Route: IVP; Site: left forearm; mg2 22:53 Follow up: Response: No adverse reaction mg2 22:03 Drug: Zofran (Ondansetron) 4 mg Route: IVP; Site: left forearm; mg2 22:53 Follow up: Response: No adverse reaction mg2 22:04 Drug: NS 0.9% 1000 ml Route: IV; Rate: 1000 ml/hr; Site: left forearm; mg2 0305 01:26 Follow up: Response: No adverse reaction; IV Status: Completed infusion; IV Intake: mg2 1000ml 11/14 22:21 Drug: fentaNYL (PF) 25 mcg Route: IVP; Site: left forearm; mg2 22:53 Follow up: Response: No adverse reaction; Marked relief of symptoms; Pain is decreased mg2 22:51 Drug: Potassium Chloride 20 mEq {Note: given for 4 hours.} Route: IV; Rate: calculated mg2 rate; Site: left forearm; 11/15 02:20 Follow up: Response: No adverse reaction; IV Status: Infusion continued upon transfer mg2 01:22 Drug: metroNIDAZOLE 500 mg Volume: 100 ml; Route: IVPB; Infused Over: 30 mins; Site: mg2 left forearm; 02:16 Follow up: Response: No adverse reaction; IV Status: Completed infusion mg2 02:16 Drug: Ciprofloxacin 400 mg Volume: 200 ml; Route: IVPB; Infused Over: 60 mins; Site: mg2 left forearm; 02:16 Follow up: Response: No adverse reaction; IV Status: Infusion continued upon transfer mg2 02:19 Drug: fentaNYL (PF) 25 mcg Route: IVP; Site: left forearm; mg2 02:20 Follow up: Response: No adverse reaction mg2 Disposition: 06:05 Co-signature as Attending Physician, Avery Cosby MD I agree with the assessment and tw4 plan of care. Disposition: 11/16/19 01:[address] [facility]. Diagnosis are Cholecystitis, Hypokalemia, Small Bowel Obstruction. - Reason for transfer: Higher level of care. - Accepting physician is DR Luna. - Condition is Stable. - Problem is new. - Symptoms have improved. Signatures: Dispatcher [employer] Rosa Peñaloza RN RN aa1 Diony Kevin PA PA cp Avery Cosby MD MD tw4 Ozzie Munguia RN RN mg2 Corrections: (The following items were deleted from the chart) 00:48 00:05 NG Tube ordered. cp cp 01:03 01:01 11/16/2019 01:[address] [facility]. cp Diagnosis is Cholecystitis. Reason for transfer: Higher level of care. Accepting physician is DR Luna. Condition is Stable. Problem is new. Symptoms have improved. cp 02:20 01:03 11/16/2019 01:[address] [facility]. mg2 Diagnosis is Cholecystitis; Hypokalemia; Small Bowel Obstruction. Reason for transfer: Higher level of care. Accepting physician is DR Luna. Condition is Stable. Problem is new. Symptoms have improved. cp
[2019-11-16 02:34] VITALS: BP 115/77; TEMP 97.8; O2SAT 100
--- NOTE | 2019-11-16 08:34 | RAD REPORT ---
EXAM DESCRIPTION: US - Abdomen Exam Limited - 11/15/2019 11:06 pm CLINICAL HISTORY: Abdominal pain COMPARISON: None FINDINGS: Large gallstone. Gallbladder wall is not thickened. Biliary tree is normal caliber IMPRESSION: Cholelithiasis
--- NOTE | 2019-11-16 10:22 | RAD REPORT ---
EXAM DESCRIPTION: CT - Abdomen Pelvis W Contrast - 11/16/2019 7:19 am CLINICAL HISTORY: 54-year-old female with nausea, vomiting and abdominal pain, recently diagnosed wi th small bowel obstruction now having increasing abdominal pain, history of lobular carcinoma and mas tectomy and oophorectomy TECHNIQUE: Axial CT imaging of the abdomen and pelvis was performed following the administration of intravenous contrast.. Sagittal and coronal reconstructed images were then performed. The CT stud y is performed according to ALARA (as low as reasonably achievable) or ALARA/IMAGE GENTLY, with autom atic adjustment of mA and/or kV according to patient size. Performed on: 11/15/2019 at 11:42 PM. COMPARISON: Prior CT abdomen and pelvis performed on 10/24/2019 FINDINGS: Lung bases: The lung bases are clear. There has been a prior left mastectomy with reconstr uction. Liver: The liver is normal in size and configuration. No focal hepatic abnormalities are identified. There is diffusely decreased attenuation of the liver commonly due to fatty infiltration. Spleen: The spleen is normal is size, configuration and attenuation. Gallbladder and bile duct: The gallbladder is well distended and contains at least one gallstone. T here is no biliary ductal dilatation. Pancreas: The pancreas is grossly normal in size and configuration. Adrenal Glands: The adrenal glands are normal in size and configuration. Kidneys: The kidneys are normal in size and configuration. There is no evidence of hydronephrosis. Th ere is no evidence of nephrolithiasis. No definite solid or cystic renal mass lesions are identified. Stomach: The stomach is incompletely distended on this examination. There is no definite hiatal herni a. Bowel: There are multiple markedly dilated fluid-filled small bowel loops with associated free fluid consistent with a distal small bowel obstruction. The transition point is difficult to identify on th is examination. The colon is normal in caliber and is decompressed. Appendix: The appendix is normal. Free air: There is no evidence of free air. Free fluid: There is a small amount of ascites. Vasculature: The aorta is normal in caliber and contour. The inferior vena cava is grossly unremarkab le. Lymphadenopathy: No pathologic lymphadenopathy is identified. Bladder: The bladder is partially distended and smooth in contour. Reproductive: The uterus is retroflexed. Bones: No acute osseous abnormalities are identified. There is degenerative spondylosis along the mid to lower thoracic spine and degenerative disc disease at L5-S1 similar when compared to the prior st udy. Soft tissues: No focal soft tissue abnormalities are identified. IMPRESSION: 1. Findings again consistent with a high-grade mechanical small bowel obstruction. There is a small amount of free fluid. No definite pneumoperitoneum identified. 2. Cholelithiasis without evidence of biliary ductal dilatation. 3. Fatty infiltration of the liver. These critical findings were discussed with Diony CHAUHAN on 11/16/2019 at 12: 04 AM central time Electronically signed by: Ellie Dubon DO 11/16/2019 12:09 AM [employer] Due to temporary technical issues with the PACS/Fluency reporting system, reports are being signed by the in house radiologist as a courtesy to ensure prompt reporting. The interpreting radiologist is f ully responsible for the content of the report.
--- NOTE | 2019-11-16 11:37 | EKG ---
Test Date: 2019-11-16 Test Time: 01:07:48 [employer] Team Technician: MEASUREMENT RESULTS: Intervals: Rate: 91 NV: 156 QRSD: 96 QT: 404 QTc: 496 [place]: P: 53 NV: 156 QRS: 42 T: 37 INTERPRETIVE STATEMENTS: Normal sinus rhythm Cannot rule out Anterior infarct, age undetermined Abnormal ECG No previous ECG available for comparison Electronically Signed On 11-16-19 11:36:22 REVISING CLERK by Joce Ledezma
== END 2019-11-16 02:20 | disposition short-term general hospital (02) ==
LOC: ER 21:20
DX: K81.9 Cholecystitis, unspecified (principal); K56.609 Unspecified intestinal obstruction, unspecified as to partial versus complete obstruction; E87.6 Hypokalemia; Z88.0 Allergy status to penicillin
CPT/HCPCS: 96365; 96361; 93005; 85025; 80048; 36415; 80076; 83690; 74177; 76705; 96375; 99285; 96366; Q9967; J3010; J7030; J2405; J0744